=== PATIENT | female | born 1990 | race Caucasian/White ===

== ENCOUNTER 2023-03-25 07:09 | Inpatient (IN) | payer OTHER ==
[2023-03-25] MEDS ORDERED: Nalbuphine 10 MG/0.5 ML Syringe IVPUSH PRN (07:27)
[2023-03-25] MEDS ORDERED: Acetaminophen 325 MG Tab PO PRN (07:27)
[2023-03-25] MEDS ORDERED: Ondansetron 4 MG/2 ML SDV IVPUSH PRN (07:27)
[2023-03-25] MEDS ORDERED: Sodium Chloride 0.9% 10 ML Syringe FLUSH PRN (07:27)
[2023-03-25] MEDS ORDERED: Oxytocin/Lactated Ringers 10 UNIT/1,000 ML BAG IV SCH ×2 (07:30)
[2023-03-25 07:55] LABS: HEMATOCRIT 34.8 % (34.1-44.9); HEMOGLOBIN 11.4 gm/dl (11.2-15.7); MEAN CORPUSCULAR HEMOGLOBIN 29.2 pg (25.6-32.2); MEAN CORPUSCULAR HGB CONC 32.8 g/dl (32.2-35.5); MEAN PLATELET VOLUME 10.8 fl (9.4-12.3); PLATELET COUNT,PLT 205 K/mm3 (182-369); RED BLOOD CELL COUNT 3.91 M/mm3 (3.98-5.22); WHITE BLOOD CELL COUNT,WBC 7.84 K/mm3 (3.98-10.04)
[2023-03-25] MEDS: Lactated Ringers 1,000 ML IV SCH ×2 (11:01→15:03)
[2023-03-25] MEDS ORDERED: fentaNYL 100 MCG/2 ML SDV EPIDUR PRN (14:57)
[2023-03-25] MEDS ORDERED: Bupivacaine/fentaNYL/NS 100 ML Bag EPIDUR PRN (14:57)
[2023-03-25] MEDS ORDERED: ePHEDrine 50 MG/ML SDV IVPUSH PRN (14:57)
[2023-03-25] MEDS ORDERED: diphenhydrAMINE 50 MG/ML SDV IVPUSH PRN (14:57)
[2023-03-25] MEDS: Sodium Chloride 0.9% 10 ML Syringe FLUSH SCH (22:28)
[2023-03-26] MEDS ORDERED: Witch Hazel Medicated Pads 40/Jar TOP PRN (05:06)
[2023-03-26] MEDS ORDERED: Acetaminophen 325 MG Tab PO PRN (05:06)
[2023-03-26] MEDS ORDERED: Docusate Sodium 100 MG Cap PO PRN (05:06)
[2023-03-26] MEDS ORDERED: Benzocaine/Menthol 20%-0.5% Spray 78 GM Cannister TOP PRN (05:06)
[2023-03-26] MEDS: Ibuprofen 600 MG Tab PO PRN ×3 (05:12→21:50)
[2023-03-26] MEDS: Sodium Chloride 0.9% 10 ML Syringe FLUSH SCH (10:08)
[2023-03-27] MEDS ORDERED: Ropivacaine 0.2% PF 2 MG/ML 20 ML SDV ONE (09:00)
== END 2023-03-27 11:05 | disposition home or self-care (01) | DRG 807 ==
LOC: JD.OB 07:09 → OBSVTOIN 18:21 → JD.OB 18:22
PROVIDERS: ADMIT Obstetrics & Gynecology; ATTEND Obstetrics & Gynecology
PROC: 10E0XZZ Delivery of Products of Conception, External Approach (ICD-10-PCS; principal; 2023-03-25)
PROC: 0KQM0ZZ Repair Perineum Muscle, Open Approach (ICD-10-PCS; 2023-03-25)
PROC: 10907ZC Drainage of Amniotic Fluid, Therapeutic from Products of Conception, Via Natural or Artificial Opening (ICD-10-PCS; 2023-03-25)
PROC: 3E033VJ Introduction of Other Hormone into Peripheral Vein, Percutaneous Approach (ICD-10-PCS; 2023-03-25)
PROC: 3E0R3BZ Introduction of Anesthetic Agent into Spinal Canal, Percutaneous Approach (ICD-10-PCS; 2023-03-25)
PROC: 00HU33Z Insertion of Infusion Device into Spinal Canal, Percutaneous Approach (ICD-10-PCS; 2023-03-25)
DX: O24.424 Gestational diabetes mellitus in childbirth, insulin controlled (principal); Z37.0 Single live birth; O69.81X0 Labor and delivery complicated by cord around neck, without compression, not applicable or unspecified; O70.1 Second degree perineal laceration during delivery; Z3A.39 39 weeks gestation of pregnancy; Z79.4 Long term (current) use of insulin
CPT/HCPCS: 01967; 36415; 51702; 59025; 59409; 85027; 86592; 86850; 86900; 86901; A9270-GY; J2590; J2795; J3490; J7120